=== PATIENT | female | born 1960 | race Caucasian/White ===

== ENCOUNTER → 2019-01-04 | Outpatient (CLI) | payer OTHER ==
--- NOTE | 2019-01-04 12:32 | PCVCIMAG ---
APPROVED REPORT Study performed: 01/04/2019 10:49:09 Exam: Stress Echocardiogram Indication: abn ekg, dyspnea, murmur, htn Patient Location: Echo lab Stress Nurse: Rosemary Velazquez RN Status: routine Ht: 5 ft 4 in HR: 53 bpm BP: 140/82 mmHg Rhythm: Bradycardia Procedure The patient underwent an Exercise Stress Test using the Carl Protocol. Blood pressure, heart rate, and EKG were monitored. An Echocardiogram was performed by mobile home technician in four stages in quad fashion. At peak stress, four selected images were obtained and placed side by side with resting images for comparison. Stress Test Details Stress Test: Exercise stress testing was performed using a Carl protocol. HR Resting HR: 53 bpmMax Heart Rate (APMHR): 163 bpm Max HR Achieved: 141 bpmTarget HR (85% APMHR): 138 bpm % of APMHR: 86 Recovery HR: 77 bpm HR response to stress: Normal HR response to stress BP Resting BP: 140/82 mmHg Max BP: 190/90 mmHg Recovery BP: 170/84 mmHg BP response to stress: Normal blood pressure response to stress. ECG Resting ECG: Sinus Rhythm Stress ECG: Sinus Rhythm ST Change: Nondiagnostic V-pacing or LBBB Arrhythmia: None Recovery ECG: Sinus Rhythm Recovery ST Change: equivocal inferior ST changes Recovery Arrhythmia: None Clinical Reason for Termination: Maximal effort Stress Symptoms: Dyspnea, limiting knee pain Exercise duration: 5 min 39 sec Highest Stage Achieved: Stage 2: 2.5 mph at 12% grade. Exercise capacity: 7 METs Overall Exercise Capacity for Age: poorl- limiting knee pain Scale: Sedentary Angina Score: None Pre-Stress Echo The resting Echocardiogram showed normal left ventricular contractility with an estimated Ejection Fraction of about >55%. Normal wall motion in all segments on baseline images. Post-Stress Echo The stress Echocardiogram showed normal left ventricular contractility with an estimated Ejection Fraction of about 65%. Normal augmentation of wall motion in all segments on post stress images. Clinical No clinical evidence for ischemia. Conclusion Clinical Response: Non-ischemic Exercise Capacity: Below Average Stress ECG Response: Equivocal Stress Echo Images: Non-ischemic The left ventricle is normal in size and wall thickness in both the rest and stress images. Other Information Study Quality: Adequate <Conclusion> The left ventricle is normal in size and wall thickness in both the rest and stress images.
== END | disposition home or self-care (01) ==
LOC: PCVCIMAG 10:34
PROVIDERS: ATTEND Internal Medicine Cardiovascular Disease
DX: R94.31 Abnormal electrocardiogram [ECG] [EKG] (principal); R06.00 Dyspnea, unspecified; R01.1 Cardiac murmur, unspecified; I10 Essential (primary) hypertension
CPT/HCPCS: 93325; 93351